=== PATIENT | female | born 1960 | race Caucasian/White ===

== ENCOUNTER 2017-02-13 12:29 | Emergency (ER) | payer MEDICAID, OTHER ==
[~2017-02-13] VITALS: Ht 162.6 cm; Wt 76.7 kg
[~2017-02-13 12:29] MED LIST: ASPI-496 PO; ATOR10TA9 PO; METO25TA35 PO; PANT20TA3 PO; PRAS5TAB3 PO
[2017-02-13 13:22] LABS: HEMATOCRIT 44.3 % (34.6-47.8); HEMOGLOBIN 15.1 g/dL (11.7-16.4); WHITE BLOOD COUNT 8.1 x10^3/uL (3.4-10)
[2017-02-13] MEDS ORDERED: LORazepam 2 MG/ML, 1ML IVPush ONE (13:30)
[2017-02-13] MEDS ORDERED: SODIUM CHLORIDE FLUSH 10ML SYR IVF ONE (13:30)
[2017-02-13 13:31] LABS: BLOOD UREA NITROGEN 7 mg/dL (7-18)
[2017-02-13 13:37] LABS: IS PT STATUS REG ER OR PRE ER? YES
[2017-02-13] MEDS ORDERED: LIDOCAINE 2%, 20ML ONE (14:38)
[2017-02-13 15:56] VITALS: BP 122/83
== END 2017-02-13 15:58 | disposition home or self-care (01) ==
LOC: ED 13:51
DX: J90 Pleural effusion, not elsewhere classified (principal); F41.1 Generalized anxiety disorder; Z85.3 Personal history of malignant neoplasm of breast; I25.2 Old myocardial infarction; Z90.10 Acquired absence of unspecified breast and nipple
CPT/HCPCS: 32555; 36415; 71010; 80048; 82040; 83880; 84484; 85025; 93005; 96374; 99285; J2060; J3490

== ENCOUNTER 2017-03-15 12:36 | Inpatient (IN) | payer MEDICAID ==
[~2017-03-15] VITALS: Ht 162.6 cm; Wt 76.3 kg
[2017-03-15] MEDS ORDERED: ASPIRIN 325 MG TABLET PO ONE ×2 (12:37→18:00)
[2017-03-15] MEDS ORDERED: VERAPAMIL 2.5 MG/ML, 2ML ONE (12:44)
[2017-03-15] MEDS ORDERED: TICAGRELOR 90 MG TABLET ONE (12:44)
[2017-03-15] MEDS ORDERED: HEPARIN 1,000 UNITS/ML, 10ML ONE (12:44)
[2017-03-15] MEDS ORDERED: LIDOCAINE 2%, 20ML ONE (12:44)
[2017-03-15] MEDS ORDERED: FENTANYL PF 100 MCG/2ML ONE (12:44)
[2017-03-15] MEDS ORDERED: BIVALIRUDIN 250 MG ONE (12:44)
[2017-03-15] MEDS ORDERED: MIDAZOLAM 1 MG/ML, 5ML ONE (12:44)
[2017-03-15 12:51] LABS: MEAN CORPUSCULAR HEMOGLOBIN 34.4 pg (27.0-34.8); MEAN CORPUSCULAR HGB CONC 33.5 g/dL (32.4-35.8); MEAN CORPUSCULAR VOLUME 102.8 fL (80-100); MEAN PLATELET VOLUME 6.4 fL (7.4-10.4); PLATELET COUNT 261 x10^3/uL (130-400); RED BLOOD COUNT 3.31 x10^6/uL (3.82-5.3); RED CELL DISTRIBUTION WIDTH 18.3 % (9.6-15.2)
[2017-03-15 13:00] LABS: INTERNATIONAL NORMALIZED RATIO 0.97 (0.93-1.1); PROTHROMBIN TIME 10.1 Seconds (9.6-11.5)
[2017-03-15] MEDS ORDERED: NITROGLYCERIN 0.4 MG BOTTLE (25 TABS) SL PRN ×2 (13:00→13:30)
[2017-03-15] MEDS ORDERED: FENTANYL PF 100 MCG/2ML IVPush PRN (13:00)
[2017-03-15] MEDS ORDERED: PLEASE ENTER HEIGHT AND WEIGHT MC SCH (13:00)
[2017-03-15] MEDS ORDERED: METOPROLOL 1 MG/ML, 5ML IVPush PRN (13:00)
[2017-03-15] MEDS ORDERED: ATORVASTATIN 80 MG TABLET PO ONE (13:00)
[2017-03-15] MEDS ORDERED: PHENYLEPHRINE 10 MG/ML ONE (13:05)
[2017-03-15 13:09] LABS: BASOPHILS # (AUTO) 0.02 x10^3/uL (0-0.1); BASOPHILS % (AUTO) 0 % (0-1); EOSINOPHILS # (AUTO) 0.13 x10^3/uL (0-0.4); EOSINOPHILS % (AUTO) 3 % (1-7); LYMPHOCYTES # (AUTO) 2.82 x10^3/uL (1-3.4); LYMPHOCYTES % (AUTO) 52 % (22-44); MD MORPH REVIEW ONLY; MONOCYTES # (AUTO) 0.49 x10^3/uL (0.2-0.8); MONOCYTES % (AUTO) 9 % (2-9); NEUTROPHILS % (AUTO) 37 % (42-75)
[2017-03-15 13:10] LABS: ANISOCYTOSIS 1+
[2017-03-15 13:11] LABS: <PLATELET ESTIMATE> ADEQUATE; LARGE PLATELETS 1+; SCHISTOCYTES 1+; TEAR DROPS 1+
[2017-03-15] MEDS ORDERED: NITROGLYCERIN 0.4 MG/SPRAY SL PRN (13:30)
[2017-03-15] MEDS ORDERED: ZOLPIDEM 5MG TABLET PO PRN ×2 (13:30→14:00)
[2017-03-15] MEDS ORDERED: ONDANSETRON 2MG/ML, 2ML IVPush PRN ×2 (13:30→14:00)
[2017-03-15] MEDS ORDERED: SODIUM CHLORIDE 0.9% 1,000 ML IV SCH (13:35)
[2017-03-15] MEDS ORDERED: ACETAMINOPHEN 325 MG TABLET PO PRN (14:00)
[2017-03-15 17:41] VITALS: BP 110/84
[2017-03-15] MEDS: METOPROLOL TARTRATE 25 MG TABLET PO SCH (20:49)
[2017-03-15] MEDS: TICAGRELOR 90 MG TABLET PO SCH (20:49)
[2017-03-15] MEDS: ATORVASTATIN 40 MG TABLET PO SCH (20:49)
[2017-03-16 05:21] LABS: ALBUMIN 3.3 g/dL (3.4-5.0); ANION GAP 8 mmol/L (5-15); CALCIUM 8.8 mg/dL (8.5-10.1); CHLORIDE 109 mmol/L (98-107); CREATININE 0.72 mg/dL (0.55-1.02)
[2017-03-16] MEDS ORDERED: ASPIRIN 81 MG TABLET EC PO SCH (09:00)
[2017-03-16] MEDS ORDERED: METOPROLOL TARTRATE 50 MG TABLET PO SCH (09:00)
[2017-03-16] MEDS: PANTOPRAZOLE 20MG TABLET PO SCH (09:32)
[2017-03-16] MEDS: ASPIRIN 81 MG TABLET EC PO SCH (09:32)
[2017-03-16] MEDS: TICAGRELOR 90 MG TABLET PO SCH ×2 (09:32→20:43)
[2017-03-16 12:51] VITALS: BP 112/79
[2017-03-16] MEDS ORDERED: AMOX1TAB64 PO (14:50)
[2017-03-16] MEDS ORDERED: LETR2.5T PO (14:50)
[2017-03-16] MEDS ORDERED: ATOR40TA78 PO (14:50)
[2017-03-16] MEDS ORDERED: TICA90TA PO (14:50)
[2017-03-16] MEDS ORDERED: LORA1TAB PO (14:50)
[2017-03-16 18:35] VITALS: BP 106/69
[2017-03-16] MEDS: ATORVASTATIN 40 MG TABLET PO SCH (20:43)
[2017-03-16] MEDS: METOPROLOL TARTRATE 25 MG TABLET PO SCH (20:43)
[2017-03-17 02:03] VITALS: BP 108/72
[2017-03-17 08:10] VITALS: BP 103/67
[2017-03-17] MEDS ORDERED: METOPROLOL TARTRATE 50 MG TABLET PO SCH (09:00)
[2017-03-17] MEDS: PANTOPRAZOLE 20MG TABLET PO SCH (09:30)
[2017-03-17] MEDS: TICAGRELOR 90 MG TABLET PO SCH (09:30)
[2017-03-17] MEDS: ASPIRIN 81 MG TABLET EC PO SCH (09:30)
[2017-03-17 13:00] VITALS: BP 108/73
[2017-03-17 18:15] VITALS: BP 138/45
== END 2017-03-17 13:57 | disposition home or self-care (01) | DRG 250 ==
LOC: ED 12:40 → EDIP 12:41 → ED 13:22 → ICU 13:50 → 5SO 03-16 12:09
PROVIDERS: ADMIT Internal Medicine Cardiovascular Disease; ATTEND Internal Medicine Cardiovascular Disease
PROC: 02703ZZ Dilation of Coronary Artery, One Artery, Percutaneous Approach (ICD-10-PCS; principal; 2017-03-15)
PROC: 4A023N7 Measurement of Cardiac Sampling and Pressure, Left Heart, Percutaneous Approach (ICD-10-PCS; 2017-03-15)
PROC: B2111ZZ Fluoroscopy of Multiple Coronary Arteries using Low Osmolar Contrast (ICD-10-PCS; 2017-03-15)
PROC: B2151ZZ Fluoroscopy of Left Heart using Low Osmolar Contrast (ICD-10-PCS; 2017-03-15)
DX: T82.867A Thrombosis due to cardiac prosthetic devices, implants and grafts, initial encounter (principal); I21.19 ST elevation (STEMI) myocardial infarction involving other coronary artery of inferior wall; R57.0 Cardiogenic shock; I44.2 Atrioventricular block, complete; Y83.8 Other surgical procedures as the cause of abnormal reaction of the patient, or of later complication, without mention of misadventure at the time of the procedure; D64.9 Anemia, unspecified; I25.82 Chronic total occlusion of coronary artery; I25.10 Atherosclerotic heart disease of native coronary artery without angina pectoris; F17.210 Nicotine dependence, cigarettes, uncomplicated; E78.5 Hyperlipidemia, unspecified; I10 Essential (primary) hypertension; Z79.82 Long term (current) use of aspirin; Z85.3 Personal history of malignant neoplasm of breast; Y92.89 Other specified places as the place of occurrence of the external cause; Z92.21 Personal history of antineoplastic chemotherapy; Z71.6 Tobacco abuse counseling
CPT/HCPCS: 36415; 71045; 80047; 80048; 82040; 84484; 85014; 85018; 85025; 85610; 85730; 87081; 93005; 93306; 93458; 99156; 99157; 99285; C1769; C1894; J0583; J1644; J2250; J3010; J3490; C1725; C1887; J2370; J7030; Q9967

== ENCOUNTER 2017-05-20 11:47 | Inpatient (IN) | payer MEDICAID ==
[~2017-05-20] VITALS: Ht 162.6 cm; Wt 75.4 kg
[~2017-05-20 11:47] MED LIST changes: +AMOX1TAB64 PO; +ATOR40TA78 PO; +LETR2.5T PO; +LORA1TAB PO; +TICA90TA PO
[2017-05-20] MEDS ORDERED: SODIUM CHLORIDE FLUSH 10ML SYR IVF ONE ×2 (12:30→13:00)
[2017-05-20 12:56] LABS: MEAN CORPUSCULAR HEMOGLOBIN 32.8 pg (27.0-34.8); MEAN CORPUSCULAR HGB CONC 33.5 g/dL (32.4-35.8); MEAN PLATELET VOLUME 7.6 fL (7.4-10.4); PLATELET COUNT 361 x10^3/uL (130-400); RED BLOOD COUNT 4.13 x10^6/uL (3.82-5.3); RED CELL DISTRIBUTION WIDTH 17.5 % (9.6-15.2)
[2017-05-20] MEDS ORDERED: MORPHINE SULFATE 4 MG/ML, 1ML IVPush PRN (13:00)
[2017-05-20] MEDS ORDERED: SODIUM CHLORIDE 0.9% 1,000ML IVBOLUS ONE (13:00)
[2017-05-20] MEDS ORDERED: ONDANSETRON 2MG/ML, 2ML IVPush ONE (13:00)
[2017-05-20 13:05] LABS: INTERNATIONAL NORMALIZED RATIO 0.99 (0.93-1.1); PROTHROMBIN TIME 10.3 Seconds (9.6-11.5)
[2017-05-20 13:09] LABS: ANION GAP 11 mmol/L (5-15); CALCIUM 8.7 mg/dL (8.5-10.1); CHLORIDE 103 mmol/L (98-107)
[2017-05-20] MEDS ORDERED: ONDANSETRON 2MG/ML, 2ML ONE (13:11)
[2017-05-20] MEDS ORDERED: MORPHINE SULFATE 4 MG/ML, 1ML ONE (13:12)
[2017-05-20 13:14] LABS: ALANINE AMINOTRANSFERASE 21 U/L (12-78); ALKALINE PHOSPHATASE 93 U/L (45-117); BILIRUBIN,TOTAL 0.8 mg/dL (0.2-1.0); CREATININE 0.92 mg/dL (0.55-1.02); TOTAL PROTEIN 7.4 g/dL (6.4-8.2); TROPONIN I < 0.015 ng/mL (0.000-0.045)
[2017-05-20 13:25] LABS: BASOPHILS # (AUTO) 0.05 x10^3/uL (0-0.1); BASOPHILS % (AUTO) 0 % (0-1); EOSINOPHILS # (AUTO) 0.23 x10^3/uL (0-0.4); EOSINOPHILS % (AUTO) 1 % (1-7); LYMPHOCYTES # (AUTO) 2.13 x10^3/uL (1-3.4); LYMPHOCYTES % (AUTO) 12 % (22-44); MD SCAN; MONOCYTES # (AUTO) 1.83 x10^3/uL (0.2-0.8); MONOCYTES % (AUTO) 10 % (2-9); NEUTROPHILS # (AUTO) 14.41 x10^3/uL (1.8-6.8); NEUTROPHILS % (AUTO) 77 % (42-75)
[2017-05-20] MEDS ORDERED: PALB125C PO (13:58)
[2017-05-20] MEDS ORDERED: ONDANSETRON 2MG/ML, 2ML IVPush PRN (15:00)
[2017-05-20] MEDS ORDERED: LORazepam 1MG TABLET PO PRN (15:00)
[2017-05-20] MEDS ORDERED: GUAIFENESIN/DM 200-20MG, 10ML UDC PO PRN (15:30)
[2017-05-20 15:36] VITALS: BP 115/79
[2017-05-20] MEDS: NICOTINE 14MG/24 HR PATCH.TD24 TD SCH (15:56)
[2017-05-20] MEDS: ACETAMINOPHEN 500 MG TABLET PO SCH ×2 (15:56→23:45)
[2017-05-20] MEDS ORDERED: LIDOCAINE 1%, 20ML ONE (17:52)
[2017-05-20] MEDS ORDERED: ALBUTEROL/IPRATROPIUM 2.5MG/0.5MG, 3 ML NPPB PRN (18:00)
[2017-05-20 18:41] VITALS: BP 104/73
[2017-05-20] MEDS ORDERED: METOPROLOL TARTRATE 25 MG TABLET PO SCH (21:00)
[2017-05-20] MEDS: TICAGRELOR 90 MG TABLET PO SCH (21:00)
[2017-05-20] MEDS ORDERED: ATORVASTATIN 40 MG TABLET PO SCH (21:00)
[2017-05-20] MEDS ORDERED: TICAGRELOR 90 MG TABLET PO SCH (21:00)
[2017-05-20 21:31] VITALS: BP 115/84
[2017-05-20] MEDS: METOPROLOL TARTRATE 25 MG TABLET PO SCH (21:32)
[2017-05-20 23:47] VITALS: BP 102/62
[2017-05-21 03:27] VITALS: BP 100/68
[2017-05-21 07:46] VITALS: BP 102/71
[2017-05-21] MEDS: ACETAMINOPHEN 500 MG TABLET PO SCH ×2 (08:33→16:22)
[2017-05-21] MEDS: METOPROLOL TARTRATE 25 MG TABLET PO SCH (08:34)
[2017-05-21] MEDS: TICAGRELOR 90 MG TABLET PO SCH (08:35)
[2017-05-21] MEDS ORDERED: ASPIRIN 81 MG TABLET EC PO SCH ×2 (09:00)
[2017-05-21] MEDS ORDERED: LETROZOLE 2.5 MG TABLET PO SCH (09:00)
[2017-05-21] MEDS ORDERED: PALBOCICLIB 125 MG PO SCH (09:00)
[2017-05-21 14:23] VITALS: BP 105/71
[2017-05-21] MEDS ORDERED: INSULIN LISPRO 100 UNITS/ML, PEN SQ-INSULIN SCH (16:00)
[2017-05-21] MEDS: NICOTINE 14MG/24 HR PATCH.TD24 TD SCH (16:22)
[2017-05-21 18:40] VITALS: BP 106/73
== END 2017-05-21 20:00 | disposition left against medical advice (07) | DRG 186 ==
LOC: ED 13:58 → EDIP 14:08 → 3NW 15:29
PROVIDERS: ADMIT Hospitalist; ATTEND Hospitalist
PROC: 0W993ZZ Drainage of Right Pleural Cavity, Percutaneous Approach (ICD-10-PCS; principal; 2017-05-20)
DX: J90 Pleural effusion, not elsewhere classified (principal); J96.01 Acute respiratory failure with hypoxia; I25.10 Atherosclerotic heart disease of native coronary artery without angina pectoris; I10 Essential (primary) hypertension; F17.200 Nicotine dependence, unspecified, uncomplicated; Z53.21 Procedure and treatment not carried out due to patient leaving prior to being seen by health care provider; F41.1 Generalized anxiety disorder; I25.2 Old myocardial infarction; Z90.13 Acquired absence of bilateral breasts and nipples; Z85.3 Personal history of malignant neoplasm of breast; Z95.5 Presence of coronary angioplasty implant and graft; Z87.01 Personal history of pneumonia (recurrent)
CPT/HCPCS: 32555; 36415; 71045; 71046; 80053; 82962; 83880; 84484; 85014; 85018; 85025; 85610; 85730; 86850; 86900; 87070; 87205; 88112; 88305; 89051; 93005; 96361; 96374; 96375; J2405; J3490; J7030

== ENCOUNTER 2017-05-25 19:37 | Inpatient (IN) | payer MEDICAID ==
[~2017-05-25] VITALS: Ht 162.6 cm; Wt 69.3 kg
[~2017-05-25 19:37] MED LIST changes: +PALB125C PO
[2017-05-25 20:29] LABS: INTERNATIONAL NORMALIZED RATIO 0.95 (0.93-1.1); MEAN CORPUSCULAR HGB CONC 33.2 g/dL (32.4-35.8); MEAN CORPUSCULAR VOLUME 96.4 fL (80-100); MEAN PLATELET VOLUME 7.1 fL (7.4-10.4); PLATELET COUNT 503 x10^3/uL (130-400); PROTHROMBIN TIME 9.9 Seconds (9.6-11.5); RED CELL DISTRIBUTION WIDTH 17.3 % (9.6-15.2)
[2017-05-25 20:33] LABS: ALANINE AMINOTRANSFERASE 29 U/L (12-78); ALBUMIN 2.4 g/dL (3.4-5.0); ANION GAP 6 mmol/L (5-15); CHLORIDE 108 mmol/L (98-107); CREATININE 0.66 mg/dL (0.55-1.02)
[2017-05-25 20:37] LABS: ALKALINE PHOSPHATASE 112 U/L (45-117); BILIRUBIN,TOTAL 0.2 mg/dL (0.2-1.0); TOTAL PROTEIN 7.1 g/dL (6.4-8.2); TROPONIN I < 0.015 ng/mL (0.000-0.045)
[2017-05-25 20:56] LABS: MD YES
[2017-05-25 21:00] LABS: BAND#(MANUAL) 0.16 x10^3/uL; BANDS%(MANUAL) 1 % (0-7); EOS#(MANUAL) 0.16 x10^3/uL (0.0-0.4); EOS% (MANUAL) 1 % (1-7); LYMPH#(MANUAL) 1.75 x10^3/uL (1-3.4); LYMPHS% (MANUAL) 11 % (22-44); MONOS#(MANUAL) 0.64 x10^3/uL (0.3-2.7); MONOS% (MANUAL) 4 % (2-9); REACTIVE LYMPHS # (MANUAL) 1.11 x10^3/uL (0-0); REACTIVE LYMPHS % (MANUAL) 7 % (0-0); SEG#(MANUAL) 12.08 x10^3/uL (1.8-6.8); SEGS% (MANUAL) 76 % (42-75)
[2017-05-25 21:01] LABS: ANISOCYTOSIS 1+
[2017-05-25 21:03] LABS: POLYCHROMASIA 1+
[2017-05-25] MEDS ORDERED: LIDOCAINE 2%, 20ML ONE (21:05)
[2017-05-25 21:07] LABS: TEAR DROPS 1+
[2017-05-25 21:08] LABS: <PLATELET ESTIMATE> INCREASED; LARGE PLATELETS 1+; TOXIC GRAN 1+
[2017-05-25] MEDS ORDERED: LORazepam 2 MG/ML, 1ML ONE (22:57)
[2017-05-25] MEDS ORDERED: SODIUM CHLORIDE 0.9% 1,000 ML IV SCH (22:59)
[2017-05-25 23:00] VITALS: BP 112/74
[2017-05-25] MEDS ORDERED: ONDANSETRON 2MG/ML, 2ML IVPush PRN (23:00)
[2017-05-25] MEDS ORDERED: ATORVASTATIN 40 MG TABLET PO SCH (23:00)
[2017-05-25] MEDS ORDERED: LORazepam 2 MG/ML, 1ML IVPush ONE (23:00)
[2017-05-25] MEDS: METOPROLOL TARTRATE 25 MG TABLET PO SCH (23:00)
[2017-05-25] MEDS ORDERED: NICOTINE 7 MG/24 HR PATCH.TD24 TD SCH (23:00)
[2017-05-25] MEDS ORDERED: ACETAMINOPHEN 325 MG TABLET PO PRN (23:00)
[2017-05-25] MEDS ORDERED: BISACODYL 10 MG SUPP PR PRN (23:00)
[2017-05-25] MEDS ORDERED: LORazepam 2 MG/ML, 1ML IVPush PRN (23:00)
[2017-05-25] MEDS ORDERED: POLYETHYLENE GLYCOL 17 GM PACKET PO PRN (23:00)
[2017-05-26 02:34] VITALS: BP 114/68
[2017-05-26 06:06] LABS: ALANINE AMINOTRANSFERASE 22 U/L (12-78); ALBUMIN 2.1 g/dL (3.4-5.0); ANION GAP 7 mmol/L (5-15); CALCIUM 7.6 mg/dL (8.5-10.1); CHLORIDE 110 mmol/L (98-107)
[2017-05-26 06:08] LABS: ALKALINE PHOSPHATASE 98 U/L (45-117); BILIRUBIN,TOTAL 0.4 mg/dL (0.2-1.0); CREATININE 0.71 mg/dL (0.55-1.02); TOTAL PROTEIN 6.1 g/dL (6.4-8.2)
[2017-05-26 06:28] LABS: MEAN CORPUSCULAR HEMOGLOBIN 31.8 pg (27.0-34.8); MEAN CORPUSCULAR VOLUME 96.3 fL (80-100); MEAN PLATELET VOLUME 7.3 fL (7.4-10.4); PLATELET COUNT 448 x10^3/uL (130-400); RED BLOOD COUNT 2.86 x10^6/uL (3.82-5.3); RED CELL DISTRIBUTION WIDTH 17.7 % (9.6-15.2)
[2017-05-26 07:18] LABS: MD YES
[2017-05-26 07:20] LABS: EOS#(MANUAL) 0.86 x10^3/uL (0.0-0.4); EOS% (MANUAL) 6 % (1-7); LYMPH#(MANUAL) 1.86 x10^3/uL (1-3.4); LYMPHS% (MANUAL) 13 % (22-44); MONOS% (MANUAL) 7 % (2-9); SEG#(MANUAL) 10.58 x10^3/uL (1.8-6.8); SEGS% (MANUAL) 74 % (42-75)
[2017-05-26 07:21] LABS: <PLATELET ESTIMATE> INCREASED; ANISOCYTOSIS 1+; POLYCHROMASIA 1+
[2017-05-26 07:23] LABS: <PLT MORPHOLOGY> NORMAL PLT MORPH
[2017-05-26 08:06] VITALS: BP 103/66
[2017-05-26] MEDS: SENNA/DOCUSATE TABLET PO SCH ×2 (08:42→08:46)
[2017-05-26] MEDS: METOPROLOL TARTRATE 25 MG TABLET PO SCH ×2 (08:44→08:59)
[2017-05-26 09:00] VITALS: BP 106/71
[2017-05-26] MEDS ORDERED: LETROZOLE 2.5 MG TABLET PO SCH (09:00)
[2017-05-26 09:44] LABS: MICROSCOPIC NOT IND
[2017-05-26 09:47] LABS: CULTURE INDICATED? NO
[2017-05-26 13:06] VITALS: BP 101/66
== END 2017-05-26 15:41 | disposition home or self-care (01) | DRG 597 ==
LOC: ED 22:17 → EDIP 22:29 → 4NOR 23:47 → DCLOUNGE 05-26 15:30
PROVIDERS: ADMIT Internal Medicine; ATTEND Internal Medicine
PROC: 0W993ZZ Drainage of Right Pleural Cavity, Percutaneous Approach (ICD-10-PCS; principal; 2017-05-26)
DX: C50.911 Malignant neoplasm of unspecified site of right female breast (principal); E43 Unspecified severe protein-calorie malnutrition; J91.0 Malignant pleural effusion; J94.2 Hemothorax; D64.9 Anemia, unspecified; D72.829 Elevated white blood cell count, unspecified; F17.210 Nicotine dependence, cigarettes, uncomplicated; F41.1 Generalized anxiety disorder; I10 Essential (primary) hypertension; I25.10 Atherosclerotic heart disease of native coronary artery without angina pectoris; Z66 Do not resuscitate; R00.0 Tachycardia, unspecified; R73.9 Hyperglycemia, unspecified; Z80.3 Family history of malignant neoplasm of breast; I25.2 Old myocardial infarction; Z68.26 Body mass index [BMI] 26.0-26.9, adult; Z85.3 Personal history of malignant neoplasm of breast; Z86.14 Personal history of Methicillin resistant Staphylococcus aureus infection; Z90.13 Acquired absence of bilateral breasts and nipples; Z95.5 Presence of coronary angioplasty implant and graft
CPT/HCPCS: 36415; 71045; 71046; 80053; 81003; 82945; 83036; 83605; 83880; 83986; 84157; 84484; 85025; 85610; 85730; 87040; 87070; 87205; 89051; 93005; 96374; J3490; J2060; J7030

== ENCOUNTER 2017-06-01 09:54 | Inpatient (IN) | payer MEDICAID ==
[~2017-06-01] VITALS: Ht 162.6 cm; Wt 76.8 kg
[~2017-06-01 09:54] MED LIST changes: +BUPIVACAINE/PF 0.5% ONE
[2017-06-01] MEDS ORDERED: LACTATED RINGERS 1,000 ML IV SCH ×2 (10:22→17:02)
[2017-06-01] MEDS ORDERED: GABAPENTIN 300 MG CAPSULE PO ONE (10:30)
[2017-06-01] MEDS ORDERED: ACETAMINOPHEN 500 MG TABLET PO ONE (10:30)
[2017-06-01] MEDS ORDERED: OXYcodone IR 5MG TABLET PO ONE (10:30)
[2017-06-01 10:51] VITALS: BP 107/74
[2017-06-01] MEDS ORDERED: FENTANYL PF 250 MCG/5ML ONE (14:47)
[2017-06-01] MEDS ORDERED: MIDAZOLAM 1 MG/ML, 2ML ONE (14:47)
[2017-06-01] MEDS ORDERED: PROPOFOL 10 MG/ML, 20ML ONE (14:48)
[2017-06-01] MEDS ORDERED: SUCCINYLCHOLINE 20 MG/ML, 10ML ONE (14:48)
[2017-06-01] MEDS ORDERED: DEXAMETHASONE 4 MG/ML, 1ML ONE (14:48)
[2017-06-01] MEDS ORDERED: CEFAZOLIN 1,000 MG ONE (14:48)
[2017-06-01] MEDS ORDERED: GLYCOPYRROLATE 0.2MG/1ML, 5ML ONE (14:48)
[2017-06-01] MEDS ORDERED: NEOSTIGMINE 1 MG/ML, 10ML ONE (14:48)
[2017-06-01] MEDS ORDERED: ONDANSETRON 2MG/ML, 2ML ONE (14:48)
[2017-06-01] MEDS ORDERED: HEPARIN 1,000 UNITS/ML, 10ML ONE (15:12)
[2017-06-01] MEDS ORDERED: LIDOCAINE-MPF 2% ,5ML ONE (15:21)
[2017-06-01] MEDS ORDERED: PHENYLEPHRINE 10 MG/ML ONE (15:21)
[2017-06-01] MEDS ORDERED: ALBUTEROL SULFATE 2.5 MG/3 ML NPPB PRN (16:30)
[2017-06-01] MEDS ORDERED: PROMETHAZINE 25 MG/ML, 1ML IV PRN (16:30)
[2017-06-01] MEDS ORDERED: DIAZEPAM 5 MG/ML, 2ML IVPush PRN (16:30)
[2017-06-01] MEDS ORDERED: ONDANSETRON 2MG/ML, 2ML IVPush PRN ×2 (16:30→17:30)
[2017-06-01] MEDS ORDERED: LORazepam 2 MG/ML, 1ML IVPush PRN ×2 (16:30→17:30)
[2017-06-01] MEDS ORDERED: morphine SULFATE 10 MG/ML, 1ML IV PRN (16:30)
[2017-06-01] MEDS ORDERED: hydrALAzine 20 MG/ML, 1ML IV PRN (16:30)
[2017-06-01] MEDS ORDERED: OXYcodone 5 MG/5 ML ORAL.SOL UDC PO PRN (16:30)
[2017-06-01] MEDS ORDERED: METOPROLOL 1 MG/ML, 5ML IV PRN (16:30)
[2017-06-01] MEDS ORDERED: MIDAZOLAM 1 MG/ML, 2ML IV PRN (16:30)
[2017-06-01] MEDS ORDERED: ALBUTEROL/IPRATROPIUM 2.5MG/0.5MG, 3 ML NPPB PRN (16:30)
[2017-06-01] MEDS ORDERED: MEPERIDINE/PF 25MG/0.5ML IVPush PRN (16:30)
[2017-06-01] MEDS ORDERED: OXYcodone 5 MG/5 ML ORAL.SOL UDC ONE (17:18)
[2017-06-01] MEDS ORDERED: FENTANYL PF 100 MCG/2ML ONE (17:18)
[2017-06-01] MEDS ORDERED: DIPHENHYDRAMINE 50 MG/ML, 1ML IVPush PRN (17:30)
[2017-06-01] MEDS ORDERED: ACETAMINOPHEN 325 MG TABLET PO PRN (17:30)
[2017-06-01] MEDS ORDERED: DIPHENHYDRAMINE 25 MG CAPSULE PO PRN (17:30)
[2017-06-01] MEDS ORDERED: ENALAPRILAT 1.25 MG/ML, 2ML IVPush PRN (17:30)
[2017-06-01] MEDS ORDERED: ACETAMINOPHEN 650 MG SUPP PR PRN (17:30)
[2017-06-01] MEDS ORDERED: hydrALAzine 20 MG/ML, 1ML IVPush PRN (17:30)
[2017-06-01] MEDS ORDERED: LORazepam 1MG TABLET PO PRN (17:30)
[2017-06-01] MEDS: FENTANYL PF 100 MCG/2ML IV PRN ×2 (17:33→17:46)
[2017-06-01] MEDS ORDERED: MEPERIDINE/PF 50 MG/ML ONE (17:53)
[2017-06-01] MEDS: morphine SULFATE 10 MG/ML, 1ML IVPush PRN ×2 (19:09→21:08)
[2017-06-01 20:00] VITALS: BP 116/53
[2017-06-01] MEDS ORDERED: ATORVASTATIN 40 MG TABLET PO SCH (21:00)
[2017-06-01] MEDS: METOPROLOL TARTRATE 25 MG TABLET PO SCH (21:00)
[2017-06-02 01:54] VITALS: BP 103/57
[2017-06-02] MEDS: morphine SULFATE 10 MG/ML, 1ML IVPush PRN ×2 (02:11→05:10)
[2017-06-02] MEDS: FAMOTIDINE 20 MG/2 ML IVPush SCH ×2 (05:14→08:52)
[2017-06-02 06:48] LABS: MEAN CORPUSCULAR HEMOGLOBIN 31.1 pg (27.0-34.8); MEAN CORPUSCULAR HGB CONC 33.2 g/dL (32.4-35.8); MEAN CORPUSCULAR VOLUME 93.6 fL (80-100); MEAN PLATELET VOLUME 6.8 fL (7.4-10.4); PLATELET COUNT 481 x10^3/uL (130-400); RED CELL DISTRIBUTION WIDTH 19.6 % (9.6-15.2)
[2017-06-02 06:58] LABS: ANION GAP 6 mmol/L (5-15); CHLORIDE 108 mmol/L (98-107); CREATININE 0.96 mg/dL (0.55-1.02)
[2017-06-02 07:50] LABS: MD YES
[2017-06-02] MEDS: HYDROcodone/APAP 5/325 TABLET PO PRN ×2 (08:17→16:19)
[2017-06-02] MEDS: METOPROLOL TARTRATE 25 MG TABLET PO SCH (08:18)
[2017-06-02 08:20] VITALS: BP 119/57
[2017-06-02 08:27] LABS: LYMPHS% (MANUAL) 2 % (22-44); MONOS% (MANUAL) 3 % (2-9); MYELOCYTES% (MANUAL) 1 % (0-0); SEG#(MANUAL) 18.71 x10^3/uL (1.8-6.8); SEGS% (MANUAL) 94 % (42-75)
[2017-06-02 08:28] LABS: ANISOCYTOSIS 1+; POLYCHROMASIA 1+
[2017-06-02 08:29] LABS: <PLATELET ESTIMATE> INCREASED; <PLT MORPHOLOGY> NORMAL PLT MORPH
[2017-06-02] MEDS ORDERED: ENOXAPARIN 40 MG/0.4 ML SQ SCH (09:00)
[2017-06-02 09:16] VITALS: BP 108/68
[2017-06-02 13:50] VITALS: BP 102/68
== END 2017-06-02 17:30 | disposition home or self-care (01) | DRG 164 ==
LOC: ORIP 09:54 → EDSTATUS 13:00 → 3NW 18:39
PROVIDERS: ADMIT Thoracic Surgery (Cardiothoracic Vascular Surgery); ATTEND Thoracic Surgery (Cardiothoracic Vascular Surgery)
PROC: 0JH60WZ Insertion of Totally Implantable Vascular Access Device into Chest Subcutaneous Tissue and Fascia, Open Approach (ICD-10-PCS; 2017-06-01)
PROC: 02HV33Z Insertion of Infusion Device into Superior Vena Cava, Percutaneous Approach (ICD-10-PCS; 2017-06-01)
PROC: B5181ZA Fluoroscopy of Superior Vena Cava using Low Osmolar Contrast, Guidance (ICD-10-PCS; 2017-06-01)
PROC: 0WH933Z Insertion of Infusion Device into Right Pleural Cavity, Percutaneous Approach (ICD-10-PCS; 2017-06-01)
PROC: 0B9 Respiratory System, Drainage (ICD-10-PCS; principal; 2017-06-01 13:00)
PROC: 0BNK4ZZ Release Right Lung, Percutaneous Endoscopic Approach (ICD-10-PCS; 2017-06-01 13:00)
DX: C34.90 Malignant neoplasm of unspecified part of unspecified bronchus or lung (principal); J91.0 Malignant pleural effusion; C50.919 Malignant neoplasm of unspecified site of unspecified female breast; J94.2 Hemothorax; G62.9 Polyneuropathy, unspecified; I25.2 Old myocardial infarction; Z80.3 Family history of malignant neoplasm of breast; Z82.49 Family history of ischemic heart disease and other diseases of the circulatory system; F17.200 Nicotine dependence, unspecified, uncomplicated
CPT/HCPCS: 36415; 71045; 77001; 80048; 85025; 88305; C1729; J0690; J1100; J1644; J1650; J2175; J2250; J2405; J2704; J2710; J3010; J3490; C1788; J0330; J2270; J2370; J7120; S0028

== ENCOUNTER → 2017-06-16 | Outpatient (CLI) | payer MEDICAID ==
[~2017-06-16] MED LIST changes: -BUPIVACAINE/PF 0.5% ONE
== END ==
LOC: CFH 08:36
PROVIDERS: ATTEND Thoracic Surgery (Cardiothoracic Vascular Surgery)
DX: R06.02 Shortness of breath (principal)
CPT/HCPCS: 71046

== ENCOUNTER 2017-10-16 12:06 | Emergency (ER) | payer MEDICAID ==
[~2017-10-16] VITALS: Ht 162.6 cm; Wt 73.0 kg
[2017-10-16] MEDS ORDERED: SODIUM CHLORIDE 0.9% 1,000ML IVBOLUS ONE (13:00)
[2017-10-16] MEDS ORDERED: SODIUM CHLORIDE FLUSH 10ML SYR IVF ONE (13:00)
[2017-10-16] MEDS ORDERED: ONDANSETRON 2MG/ML, 2ML IVPush ONE (13:00)
[2017-10-16] MEDS ORDERED: MORPHINE SULFATE 4 MG/ML, 1ML IVPush PRN (13:00)
[2017-10-16] MEDS ORDERED: PLEASE ENTER WEIGHT MC SCH (13:00)
[2017-10-16] MEDS ORDERED: MORPHINE SULFATE 4 MG/ML, 1ML ONE (13:52)
[2017-10-16] MEDS ORDERED: ONDANSETRON 2MG/ML, 2ML ONE (13:52)
[2017-10-16 14:02] LABS: BASOPHILS # (AUTO) 0.02 x10^3/uL (0-0.1); BASOPHILS % (AUTO) 0 % (0-1); EOSINOPHILS % (AUTO) 5 % (1-7); LYMPHOCYTES # (AUTO) 1.46 x10^3/uL (1-3.4); LYMPHOCYTES % (AUTO) 16 % (22-44); MD NO; MEAN CORPUSCULAR HEMOGLOBIN 26.8 pg (27.0-34.8); MEAN CORPUSCULAR HGB CONC 32.9 g/dL (32.4-35.8); MEAN CORPUSCULAR VOLUME 81.4 fL (80-100); MEAN PLATELET VOLUME 7.3 fL (7.4-10.4); MONOCYTES # (AUTO) 0.89 x10^3/uL (0.2-0.8); MONOCYTES % (AUTO) 10 % (2-9); NEUTROPHILS # (AUTO) 6.14 x10^3/uL (1.8-6.8); NEUTROPHILS % (AUTO) 69 % (42-75); PLATELET COUNT 358 x10^3/uL (130-400); RED BLOOD COUNT 4.37 x10^6/uL (3.82-5.3); RED CELL DISTRIBUTION WIDTH 21.5 % (9.6-15.2)
[2017-10-16 14:12] LABS: ALANINE AMINOTRANSFERASE 33 U/L (12-78); ALBUMIN 3.3 g/dL (3.4-5.0); ANION GAP 8 mmol/L (5-15); CALCIUM 8.3 mg/dL (8.5-10.1); CHLORIDE 109 mmol/L (98-107); CREATININE 0.67 mg/dL (0.55-1.02)
[2017-10-16 14:15] LABS: ALKALINE PHOSPHATASE 125 U/L (45-117); BILIRUBIN,TOTAL 0.3 mg/dL (0.2-1.0); TOTAL PROTEIN 7.3 g/dL (6.4-8.2)
[2017-10-16] MEDS ORDERED: MAALOX/HYOSCYAMINE/LIDOCAINE 45 ML BTL PO ONE (15:00)
[2017-10-16] MEDS ORDERED: MAALOX/HYOSCYAMINE/LIDOCAINE 45 ML BTL ONE (15:08)
[2017-10-16 15:18] LABS: MICROSCOPIC NOT IND
[2017-10-16 15:35] LABS: CULTURE INDICATED? NO
[2017-10-16 16:34] VITALS: BP 138/98
== END 2017-10-16 16:41 | disposition home or self-care (01) ==
LOC: ED 15:52
DX: K29.00 Acute gastritis without bleeding (principal); R73.9 Hyperglycemia, unspecified; I10 Essential (primary) hypertension; I25.2 Old myocardial infarction; I25.10 Atherosclerotic heart disease of native coronary artery without angina pectoris
CPT/HCPCS: 36415; 76700; 80053; 81003; 83690; 85025; 93005; 96361; 96374; 96375; 99285; J2405; J7030

== ENCOUNTER 2017-10-18 11:51 | Emergency (ER) | payer MEDICAID ==
[~2017-10-18] VITALS: Ht 162.6 cm; Wt 73.0 kg
[2017-10-18 13:47] LABS: ALANINE AMINOTRANSFERASE 29 U/L (12-78); ALBUMIN 3.1 g/dL (3.4-5.0); ANION GAP 7 mmol/L (5-15); CALCIUM 8.6 mg/dL (8.5-10.1); CHLORIDE 109 mmol/L (98-107); CREATININE 0.73 mg/dL (0.55-1.02)
[2017-10-18 13:51] LABS: ALKALINE PHOSPHATASE 114 U/L (45-117); BILIRUBIN,TOTAL 0.4 mg/dL (0.2-1.0); TOTAL PROTEIN 7.4 g/dL (6.4-8.2)
[2017-10-18 13:54] LABS: BASOPHILS # (AUTO) 0.03 x10^3/uL (0-0.1); BASOPHILS % (AUTO) 0 % (0-1); EOSINOPHILS # (AUTO) 0.28 x10^3/uL (0-0.4); EOSINOPHILS % (AUTO) 3 % (1-7); LYMPHOCYTES # (AUTO) 1.47 x10^3/uL (1-3.4); LYMPHOCYTES % (AUTO) 17 % (22-44); MD NO; MEAN CORPUSCULAR HEMOGLOBIN 26.5 pg (27.0-34.8); MEAN CORPUSCULAR HGB CONC 32.6 g/dL (32.4-35.8); MEAN CORPUSCULAR VOLUME 81.1 fL (80-100); MEAN PLATELET VOLUME 7.5 fL (7.4-10.4); MONOCYTES # (AUTO) 0.96 x10^3/uL (0.2-0.8); MONOCYTES % (AUTO) 11 % (2-9); NEUTROPHILS # (AUTO) 5.83 x10^3/uL (1.8-6.8); NEUTROPHILS % (AUTO) 68 % (42-75); PLATELET COUNT 338 x10^3/uL (130-400); RED BLOOD COUNT 4.49 x10^6/uL (3.82-5.3); RED CELL DISTRIBUTION WIDTH 21.1 % (9.6-15.2)
[2017-10-18 14:07] LABS: MICROSCOPIC NOT IND
[2017-10-18 14:11] LABS: CULTURE INDICATED? YES
[2017-10-18] MEDS ORDERED: L.E.T SOLUTION TP ONE ×3 (14:13→14:30)
[2017-10-18] MEDS ORDERED: SODIUM CHLORIDE 0.9%, 500ML IVBOLUS ONE (14:30)
[2017-10-18] MEDS ORDERED: OMNIPAQUE 350 MG/ML, 100ML BOTTLE ONE (15:24)
[2017-10-18 17:00] VITALS: BP 145/75
== END 2017-10-18 17:32 | disposition home or self-care (01) ==
LOC: ED 17:03
DX: R10.11 Right upper quadrant pain (principal); R07.2 Precordial pain; C50.919 Malignant neoplasm of unspecified site of unspecified female breast; C78.2 Secondary malignant neoplasm of pleura; I10 Essential (primary) hypertension; I25.2 Old myocardial infarction; I25.10 Atherosclerotic heart disease of native coronary artery without angina pectoris; F17.200 Nicotine dependence, unspecified, uncomplicated; R06.02 Shortness of breath; Z90.10 Acquired absence of unspecified breast and nipple
CPT/HCPCS: 36415; 71275; 74174; 80053; 81003; 83690; 85025; 93005; 99285; J7040; Q9967

== ENCOUNTER 2017-12-14 09:02 | Inpatient (IN) | payer MEDICAID, OTHER ==
[~2017-12-14] VITALS: Ht 162.6 cm; Wt 70.6 kg
[2017-12-14] MEDS ORDERED: PLEASE ENTER HEIGHT AND WEIGHT MC SCH (09:30)
[2017-12-14] MEDS ORDERED: ONDANSETRON 2MG/ML, 2ML IVPush ONE ×2 (09:30→10:30)
[2017-12-14] MEDS ORDERED: SODIUM CHLORIDE 0.9% 1,000ML IVBOLUS ONE ×2 (09:30→11:00)
[2017-12-14] MEDS ORDERED: SODIUM CHLORIDE FLUSH 10ML SYR IVF ONE ×2 (09:30→11:30)
[2017-12-14] MEDS ORDERED: LIDOCAINE-MPF 2% ,5ML ONE (10:20)
[2017-12-14 10:24] LABS: BASOPHILS # (AUTO) 0.05 x10^3/uL (0-0.1); BASOPHILS % (AUTO) 1 % (0-1); EOSINOPHILS # (AUTO) 0.23 x10^3/uL (0-0.4); EOSINOPHILS % (AUTO) 2 % (1-7); LYMPHOCYTES # (AUTO) 1.26 x10^3/uL (1-3.4); LYMPHOCYTES % (AUTO) 13 % (22-44); MD NO; MEAN CORPUSCULAR HEMOGLOBIN 26.9 pg (27.0-34.8); MEAN CORPUSCULAR HGB CONC 32.7 g/dL (32.4-35.8); MEAN CORPUSCULAR VOLUME 82.3 fL (80-100); MEAN PLATELET VOLUME 7.6 fL (7.4-10.4); MONOCYTES # (AUTO) 0.75 x10^3/uL (0.2-0.8); MONOCYTES % (AUTO) 8 % (2-9); NEUTROPHILS # (AUTO) 7.56 x10^3/uL (1.8-6.8); NEUTROPHILS % (AUTO) 77 % (42-75); PLATELET COUNT 405 x10^3/uL (130-400); RED BLOOD COUNT 4.91 x10^6/uL (3.82-5.3)
[2017-12-14] MEDS ORDERED: ONDANSETRON 2MG/ML, 2ML ONE (10:26)
[2017-12-14] MEDS ORDERED: MORPHINE SULFATE 4 MG/ML, 1ML ONE (10:27)
[2017-12-14 10:33] LABS: PROTHROMBIN TIME 10.3 Seconds (9.6-11.5)
[2017-12-14 10:37] LABS: CHLORIDE 109 mmol/L (98-107)
[2017-12-14 10:38] LABS: ALBUMIN 3.4 g/dL (3.4-5.0); ANION GAP 7 mmol/L (5-15); CALCIUM 9.3 mg/dL (8.5-10.1)
[2017-12-14 10:42] LABS: ALANINE AMINOTRANSFERASE 17 U/L (12-78); ALKALINE PHOSPHATASE 107 U/L (45-117); BILIRUBIN,TOTAL 0.3 mg/dL (0.2-1.0); CREATININE 0.49 mg/dL (0.55-1.02); TOTAL PROTEIN 7.7 g/dL (6.4-8.2)
[2017-12-14 10:59] LABS: CULTURE INDICATED? NO; MICROSCOPIC NOT IND
[2017-12-14] MEDS: MORPHINE SULFATE 4 MG/ML, 1ML IVPush PRN ×2 (11:17→15:44)
[2017-12-14] MEDS ORDERED: CEFTRIAXONE PMX 1GM/50ML 50 ML IV ONE (14:30)
[2017-12-14] MEDS ORDERED: CEFTRIAXONE PMX 1GM/50ML 50 ML ONE (14:45)
[2017-12-14] MEDS ORDERED: HYDROcodone/APAP 10/325 MG TABLET ONE (15:08)
[2017-12-14] MEDS ORDERED: TEMAZEPAM 15 MG CAPSULE PO PRN (15:30)
[2017-12-14] MEDS ORDERED: POLYETHYLENE GLYCOL 17 GM PACKET PO PRN (15:30)
[2017-12-14] MEDS ORDERED: ONDANSETRON ODT 4 MG PO PRN (15:30)
[2017-12-14] MEDS ORDERED: ONDANSETRON 2MG/ML, 2ML IVPush PRN (15:30)
[2017-12-14] MEDS ORDERED: OXYcodone IR 5MG TABLET PO PRN (15:30)
[2017-12-14] MEDS ORDERED: ACETAMINOPHEN 325 MG TABLET PO PRN (15:30)
[2017-12-14] MEDS ORDERED: KETOROLAC 30 MG/1 ML IVPush PRN (15:30)
[2017-12-14] MEDS ORDERED: ENALAPRILAT 1.25 MG/ML, 2ML IVPush PRN ×2 (15:30→23:00)
[2017-12-14] MEDS ORDERED: BISACODYL 10 MG SUPP PR PRN (15:30)
[2017-12-14] MEDS ORDERED: CEFTRIAXONE 1,000 MG in SODIUM CHLORIDE 0.9% 50 ML IV SCH (15:30)
[2017-12-14] MEDS: ENOXAPARIN 40 MG/0.4 ML SQ SCH ×2 (16:00→16:07)
[2017-12-14] MEDS ORDERED: HYDROcodone/APAP 10/325 MG TABLET PO ONE (16:00)
[2017-12-14] MEDS: LACTATED RINGERS 1,000 ML IV SCH ×2 (16:07→23:52)
[2017-12-14 16:10] VITALS: BP 122/79
[2017-12-14 19:19] VITALS: BP 108/71
[2017-12-14] MEDS ORDERED: OMNIPAQUE 350 MG/ML, 100ML BOTTLE ONE (20:16)
[2017-12-15 01:11] VITALS: BP 130/89
[2017-12-15] MEDS: morphine SULFATE 10 MG/ML, 1ML IVPush PRN ×3 (01:22→15:28)
[2017-12-15 05:41] LABS: BASOPHILS # (AUTO) 0.02 x10^3/uL (0-0.1); BASOPHILS % (AUTO) 0 % (0-1); EOSINOPHILS # (AUTO) 0.25 x10^3/uL (0-0.4); EOSINOPHILS % (AUTO) 3 % (1-7); LYMPHOCYTES # (AUTO) 1.19 x10^3/uL (1-3.4); LYMPHOCYTES % (AUTO) 16 % (22-44); MD NO; MEAN CORPUSCULAR HEMOGLOBIN 27.7 pg (27.0-34.8); MEAN CORPUSCULAR HGB CONC 33.3 g/dL (32.4-35.8); MEAN CORPUSCULAR VOLUME 83.2 fL (80-100); MEAN PLATELET VOLUME 7.6 fL (7.4-10.4); MONOCYTES # (AUTO) 0.74 x10^3/uL (0.2-0.8); MONOCYTES % (AUTO) 10 % (2-9); NEUTROPHILS % (AUTO) 70 % (42-75); PLATELET COUNT 356 x10^3/uL (130-400); RED CELL DISTRIBUTION WIDTH 17.2 % (9.6-15.2)
[2017-12-15 05:51] LABS: CHLORIDE 113 mmol/L (98-107)
[2017-12-15 05:56] LABS: ANION GAP 9 mmol/L (5-15); CALCIUM 8.7 mg/dL (8.5-10.1); CREATININE 0.44 mg/dL (0.55-1.02)
[2017-12-15 06:45] VITALS: BP 108/73
[2017-12-15] MEDS: PANTOPRAZOLE 40 MG IV IVPush SCH (07:41)
[2017-12-15] MEDS: LORazepam 2 MG/ML, 1ML IVPush PRN ×2 (10:16→16:07)
[2017-12-15] MEDS: SENNA/DOCUSATE TABLET PO SCH (10:16)
[2017-12-15] MEDS ORDERED: LORazepam INTENSOL 2 MG/ML PO PRN (11:30)
[2017-12-15 13:22] VITALS: BP 115/78
[2017-12-15] MEDS: ONDANSETRON ODT 4 MG PO SCH ×2 (15:19→20:18)
[2017-12-15] MEDS ORDERED: CEFTRIAXONE PMX 1GM/50ML 50 ML IV SCH (15:30)
[2017-12-15] MEDS ORDERED: SENN1TAB8 PO (15:41)
[2017-12-15] MEDS ORDERED: ONDA4TAB13 PO (15:41)
[2017-12-15] MEDS ORDERED: CEFD300C37 PO (15:41)
[2017-12-15] MEDS ORDERED: POLY17PO5 PO (15:41)
[2017-12-15] MEDS: ENOXAPARIN 40 MG/0.4 ML SQ SCH (16:00)
[2017-12-15 18:40] VITALS: BP 120/82
[2017-12-15] MEDS ORDERED: TEMAZEPAM 15 MG CAPSULE PO SCH (21:00)
[2017-12-16 01:32] VITALS: BP 121/81
[2017-12-16] MEDS: ONDANSETRON ODT 4 MG PO SCH ×2 (02:21→09:05)
[2017-12-16] MEDS: morphine SULFATE 10 MG/ML, 1ML IVPush PRN ×2 (02:22→09:05)
[2017-12-16] MEDS: LORazepam 2 MG/ML, 1ML IVPush PRN (06:21)
[2017-12-16 06:58] VITALS: BP 120/82
[2017-12-16] MEDS: PANTOPRAZOLE 40 MG IV IVPush SCH (08:18)
[2017-12-16] MEDS: SENNA/DOCUSATE TABLET PO SCH (09:00)
== END 2017-12-16 10:15 | disposition hospice, home (50) | DRG 180 ==
LOC: ED 11:57 → EDIP 14:01 → 3NW 15:41
PROVIDERS: ADMIT Internal Medicine; ATTEND Internal Medicine
PROC: 0W9G3ZZ Drainage of Peritoneal Cavity, Percutaneous Approach (ICD-10-PCS; principal; 2017-12-14)
DX: C78.00 Secondary malignant neoplasm of unspecified lung (principal); K65.2 Spontaneous bacterial peritonitis; I77.72 Dissection of iliac artery; C78.2 Secondary malignant neoplasm of pleura; C78.6 Secondary malignant neoplasm of retroperitoneum and peritoneum; R18.8 Other ascites; J90 Pleural effusion, not elsewhere classified; E78.5 Hyperlipidemia, unspecified; F17.200 Nicotine dependence, unspecified, uncomplicated; F32.9 Major depressive disorder, single episode, unspecified; F41.9 Anxiety disorder, unspecified; G47.00 Insomnia, unspecified; D47.3 Essential (hemorrhagic) thrombocythemia; I49.3 Ventricular premature depolarization; K59.03 Drug induced constipation; T40.605A Adverse effect of unspecified narcotics, initial encounter; Z66 Do not resuscitate; Z51.5 Encounter for palliative care; G89.29 Other chronic pain; R73.9 Hyperglycemia, unspecified; I10 Essential (primary) hypertension; I25.10 Atherosclerotic heart disease of native coronary artery without angina pectoris; Z95.5 Presence of coronary angioplasty implant and graft; I25.2 Old myocardial infarction; Z80.3 Family history of malignant neoplasm of breast; Z86.14 Personal history of Methicillin resistant Staphylococcus aureus infection; Z90.13 Acquired absence of bilateral breasts and nipples; Z85.3 Personal history of malignant neoplasm of breast
CPT/HCPCS: 36415; 49083; 74018; 74021; 74177; 80048; 80053; 81003; 82042; 83605; 83615; 83690; 83735; 84100; 85025; 85610; 87040; 87070; 87205; 88112; 88305; 88341; 88342; 88360; 89051; 93005; 96361; 96374; 96375; 99285; G0378; J0696; J1650; J2405; J3490; Q0162; Q9967; C9113; G0461; J2060; J2270; J7030; J7120

== ENCOUNTER 2018-01-08 15:40 | Inpatient (IN) | payer MEDICAID ==
[~2018-01-08] VITALS: Ht 162.6 cm; Wt 71.0 kg
[~2018-01-08 15:40] MED LIST changes: +CEFD300C37 PO; +ONDA4TAB13 PO; +POLY17PO5 PO; +SENN1TAB8 PO
[2018-01-08] MEDS ORDERED: LORazepam 2 MG/ML, 1ML IVPush ONE (16:30)
[2018-01-08] MEDS ORDERED: ONDANSETRON 2MG/ML, 2ML IVPush ONE (16:30)
[2018-01-08] MEDS ORDERED: SODIUM CHLORIDE 0.9% 1,000ML IVBOLUS ONE (16:30)
[2018-01-08] MEDS ORDERED: HYDROmorphone 2 MG/ML, 1ML IVPush PRN (16:30)
[2018-01-08] MEDS ORDERED: SODIUM CHLORIDE FLUSH 10ML SYR IVF ONE (16:30)
[2018-01-08] MEDS ORDERED: ONDANSETRON 2MG/ML, 2ML ONE (16:50)
[2018-01-08] MEDS ORDERED: LORazepam 2 MG/ML, 1ML ONE (17:51)
[2018-01-08] MEDS ORDERED: MAALOX/HYOSCYAMINE/LIDOCAINE 45 ML BTL PO ONE (18:00)
[2018-01-08] MEDS ORDERED: DIPHENHYDRAMINE 50 MG/ML, 1ML IVPush PRN (18:00)
[2018-01-08] MEDS ORDERED: METOCLOPRAMIDE 5 MG/ML, 2ML IVPush PRN (18:00)
[2018-01-08] MEDS: HYDROmorphone 2 MG/ML, 1ML IVPush SCH ×2 (18:30→19:53)
[2018-01-08] MEDS ORDERED: MAALOX/HYOSCYAMINE/LIDOCAINE 45 ML BTL ONE (18:32)
[2018-01-08] MEDS: PROMETHAZINE 25 MG/ML, 1ML IM PRN (19:53)
[2018-01-08] MEDS: LORazepam 2 MG/ML, 1ML IVPush PRN (23:47)
[2018-01-09 01:42] VITALS: BP 103/72
[2018-01-09] MEDS: HYDROmorphone 2 MG/ML, 1ML IVPush SCH ×8 (03:30→22:22)
[2018-01-09 06:52] VITALS: BP 107/75
[2018-01-09] MEDS ORDERED: LIDOCAINE-MPF 1%, 5ML ONE (08:21)
[2018-01-09] MEDS: LORazepam 2 MG/ML, 1ML IVPush PRN (13:19)
[2018-01-09 14:18] VITALS: BP 106/68
[2018-01-10] MEDS: LORazepam 2 MG/ML, 1ML IVPush PRN (02:27)
[2018-01-10] MEDS: HYDROmorphone 2 MG/ML, 1ML IVPush SCH ×6 (02:27→15:02)
[2018-01-10] MEDS ORDERED: HYDROmorphone 2 MG/ML, 1ML IM ONE (11:30)
[2018-01-10] MEDS: PROMETHAZINE 25 MG/ML, 1ML IM PRN (15:02)
== END 2018-01-10 15:48 | disposition hospice, home (50) | DRG 374 ==
LOC: ED 16:57 → EDIP 17:46 → 3NW 18:30 → UNDODISIN 01-10 15:26
PROVIDERS: ADMIT Internal Medicine; ATTEND Family Medicine
PROC: 0W9G30Z Drainage of Peritoneal Cavity with Drainage Device, Percutaneous Approach (ICD-10-PCS; principal; 2018-01-09)
DX: C78.6 Secondary malignant neoplasm of retroperitoneum and peritoneum (principal); I77.72 Dissection of iliac artery; K56.699 Other intestinal obstruction unspecified as to partial versus complete obstruction; C78.00 Secondary malignant neoplasm of unspecified lung; C79.89 Secondary malignant neoplasm of other specified sites; R18.0 Malignant ascites; C50.919 Malignant neoplasm of unspecified site of unspecified female breast; F17.200 Nicotine dependence, unspecified, uncomplicated; I11.9 Hypertensive heart disease without heart failure; Z51.5 Encounter for palliative care; R00.0 Tachycardia, unspecified; Z66 Do not resuscitate; I25.10 Atherosclerotic heart disease of native coronary artery without angina pectoris; I25.2 Old myocardial infarction; Z80.3 Family history of malignant neoplasm of breast; Z86.14 Personal history of Methicillin resistant Staphylococcus aureus infection; Z90.13 Acquired absence of bilateral breasts and nipples; Z91.19 Patient's noncompliance with other medical treatment and regimen; Z95.5 Presence of coronary angioplasty implant and graft
CPT/HCPCS: 49083; 96372; 96374; 96375; 99285; G0378; J1170; J2405; J2550; J1200; J2060; J7030

== ENCOUNTER 2018-01-10 15:47 | Inpatient (IN) | payer MEDICAID ==
[~2018-01-10] VITALS: Ht 162.6 cm; Wt 68.4 kg
[2018-01-10] MEDS: HYDROmorphone 2 MG/ML, 1ML IVPush PRN ×2 (17:19→20:40)
[2018-01-10] MEDS ORDERED: LORazepam 2 MG/ML, 1ML IVPush PRN (17:30)
[2018-01-10] MEDS ORDERED: PROMETHAZINE 25 MG/ML, 1ML IM PRN (17:30)
[2018-01-10] MEDS ORDERED: METOCLOPRAMIDE 5 MG/ML, 2ML IVPush PRN (17:30)
[2018-01-10] MEDS ORDERED: ONDANSETRON ODT 4 MG PO PRN (17:30)
[2018-01-10] MEDS ORDERED: ONDANSETRON 2MG/ML, 2ML IVPush PRN (17:30)
[2018-01-10] MEDS ORDERED: HYDROmorphone 10 MG in SODIUM CHLORIDE 0.9% 245 ML IV PRN (18:30)
[2018-01-10] MEDS ORDERED: LIDOCAINE JELLY 2%, 30GM TP ONE (18:30)
[2018-01-10] MEDS: DIPHENHYDRAMINE 50 MG/ML, 1ML IVPush PRN (20:40)
[2018-01-10] MEDS: SODIUM CHLORIDE 0.9% 1,000 ML IV SCH (20:46)
[2018-01-10] MEDS: LORazepam 2 MG/ML, 1ML IVPush SCH (22:58)
[2018-01-11] MEDS: DIPHENHYDRAMINE 50 MG/ML, 1ML IVPush PRN ×2 (00:48→17:31)
[2018-01-11] MEDS: HYDROmorphone 2 MG/ML, 1ML IVPush PRN ×5 (00:48→17:31)
[2018-01-11 06:04] VITALS: BP 103/70
[2018-01-11] MEDS: LORazepam 2 MG/ML, 1ML IVPush SCH ×4 (06:07→19:35)
[2018-01-11 07:55] VITALS: BP 108/66
[2018-01-11] MEDS: LIDOCAINE JELLY 2%, 30GM TP SCH (09:00)
[2018-01-11] MEDS: SODIUM CHLORIDE 0.9% 1,000 ML IV SCH (17:04)
[2018-01-11 19:03] VITALS: BP 99/69
[2018-01-12] MEDS: LORazepam 2 MG/ML, 1ML IVPush SCH ×6 (00:35→22:19)
[2018-01-12] MEDS: HYDROmorphone 2 MG/ML, 1ML IVPush PRN ×2 (06:24→11:19)
[2018-01-12 07:55] VITALS: BP 91/54
[2018-01-12] MEDS: LIDOCAINE JELLY 2%, 30GM TP SCH (08:42)
[2018-01-12] MEDS: SODIUM CHLORIDE 0.9% 1,000 ML IV SCH (10:55)
[2018-01-12] MEDS: HYDROmorphone 2 MG/ML, 1ML IVPush SCH ×2 (13:53→17:29)
[2018-01-12] MEDS: METOCLOPRAMIDE 5 MG/ML, 2ML IVPush SCH (16:22)
[2018-01-12] MEDS: DIPHENHYDRAMINE 50 MG/ML, 1ML IVPush SCH (19:47)
[2018-01-13] MEDS: HYDROmorphone 2 MG/ML, 1ML IVPush SCH ×4 (00:32→18:28)
[2018-01-13] MEDS: LORazepam 2 MG/ML, 1ML IVPush SCH ×6 (03:27→23:59)
[2018-01-13 05:53] VITALS: BP 115/76
[2018-01-13 06:49] VITALS: BP 109/76
[2018-01-13] MEDS: METOCLOPRAMIDE 5 MG/ML, 2ML IVPush SCH ×3 (08:11→16:41)
[2018-01-13] MEDS: DIPHENHYDRAMINE 50 MG/ML, 1ML IVPush SCH ×2 (09:00→23:31)
[2018-01-13] MEDS: LIDOCAINE JELLY 2%, 30GM TP SCH (11:16)
[2018-01-13] MEDS: DIPHENHYDRAMINE 50 MG/ML, 1ML IVPush PRN (12:14)
[2018-01-14] MEDS: HYDROmorphone 2 MG/ML, 1ML IVPush SCH ×2 (00:47→06:32)
[2018-01-14] MEDS: LORazepam 2 MG/ML, 1ML IVPush SCH ×2 (03:59→07:34)
[2018-01-14] MEDS: SODIUM CHLORIDE 0.9% 1,000 ML IV SCH (04:00)
[2018-01-14] MEDS: METOCLOPRAMIDE 5 MG/ML, 2ML IVPush SCH (06:32)
[2018-01-14 06:56] VITALS: BP 90/65
[2018-01-14] MEDS: DIPHENHYDRAMINE 50 MG/ML, 1ML IVPush SCH (09:00)
[2018-01-14] MEDS: DIPHENHYDRAMINE 50 MG/ML, 1ML IVPush PRN ×2 (10:12→10:13)
[2018-01-14] MEDS: LIDOCAINE JELLY 2%, 30GM TP SCH (10:16)
[2018-01-14] MEDS ORDERED: PHARMACY INSTRUCTION MC PRN (12:00)
[2018-01-14] MEDS ORDERED: [UNRECOGNIZED DRUG - REMARK] MC SCH (12:30)
[2018-01-14] MEDS ORDERED: HYDROmorphone 2MG TABLET PO PRN (12:30)
[2018-01-14] MEDS ORDERED: LORazepam INTENSOL 2 MG/ML PO PRN (12:30)
[2018-01-14] MEDS: LORazepam INTENSOL 2 MG/ML SL SCH ×2 (12:31→16:13)
[2018-01-14] MEDS ORDERED: HYDROmorphone 2MG TABLET PO SCH (13:00)
[2018-01-14] MEDS: PROMETHAZINE TP SCH ×2 (13:00→16:00)
[2018-01-14] MEDS ORDERED: HYDROMORPHONE SL SCH (13:30)
[2018-01-14] MEDS ORDERED: LIDOCAINE GEL 2%, 5ML TP SCH (16:00)
[2018-01-14] MEDS ORDERED: METOCLOPRAMIDE 10MG TABLET PO SCH (16:00)
[2018-01-14] MEDS ORDERED: LACTULOSE 10 GM/15 ML UDC PO SCH (21:00)
[2018-01-14] MEDS ORDERED: ABHR TP SCH (21:00)
[2018-01-14] MEDS ORDERED: DIPHENHYDRAMINE 12.5MG/5ML ORAL SOL PO SCH (21:00)
== END 2018-01-14 17:26 | disposition hospice, home (50) | DRG 374 ==
LOC: 3NW 15:51
PROVIDERS: ADMIT Internal Medicine; ATTEND Internal Medicine
DX: C78.6 Secondary malignant neoplasm of retroperitoneum and peritoneum (principal); I77.72 Dissection of iliac artery; C79.89 Secondary malignant neoplasm of other specified sites; K56.609 Unspecified intestinal obstruction, unspecified as to partial versus complete obstruction; R18.0 Malignant ascites; C50.919 Malignant neoplasm of unspecified site of unspecified female breast; F41.9 Anxiety disorder, unspecified; I10 Essential (primary) hypertension; N30.80 Other cystitis without hematuria; Z66 Do not resuscitate; Z90.13 Acquired absence of bilateral breasts and nipples; Z80.3 Family history of malignant neoplasm of breast
CPT/HCPCS: G0378; J1170; J2405; J1200; J2060; J2765; J7030